=== PATIENT | female | born 1950 | race Caucasian/White ===

== ENCOUNTER 2023-10-28 20:50 | Inpatient (IN) | payer MEDICARE ==
[~2023-10-28] VITALS: Ht 170.2 cm; Wt 66.2 kg
[2023-10-28] MEDS ORDERED: LOSARTAN POTAS100 MG PO (21:05)
[2023-10-28] MEDS ORDERED: ATENOLOL100 MG PO (21:05)
[2023-10-28] MEDS ORDERED: INDAPAMIDE2.5 MG PO (21:06)
[2023-10-28] MEDS ORDERED: MIRTAZAPINE30 M1 PO (21:06)
[2023-10-28 21:21] LABS: BASOPHILS 0.2 % (0-2); EOSINOPHILS 0.5 % (0-6); HEMATOCRIT 42.1 % (35.0-50.0); HEMOGLOBIN 14.7 g/dL (12.0-18.0); LYMPHOCYTES 4.2 % (24-44); MCH 31.6 (27-36); MCV 90.2 fl (81-99); NEUTROPHILS 91.1 % (39-80); PLATELET COUNT 261 K/uL (140-440); RBC 4.66 M/ul (4.3-5.7); RDW 13.5 (10.5-15.0)
[2023-10-28 21:28] LABS: ALBUMIN 3.9 g/dL (3.4-5.0); ALBUMIN/GLOBULIN RATIO 1.05 (1.1-2.4); ANION GAP 12.9 (7-21); BILIRUBIN, TOTAL 1.6 ng/dL (0.2-1.0); BUN/CREATININE RATIO 9.41 (6.0-28.6); CALCIUM 9.4 mg/dL (8.5-10.1); CREATININE, SERUM 0.85 mg/dL (0.55-1.02); POTASSIUM 2.9 mmol/L (3.5-5.1); PROTEIN, TOTAL 7.6 g/dL (6.4-8.2)
[2023-10-28] MEDS ORDERED: KETOROLAC TROMETHAMINE 30 MG/ML VIAL IV ONE (21:45)
[2023-10-28] MEDS ORDERED: SODIUM CHLORIDE 0.9% 1,000 ML IV PRN (21:45)
[2023-10-28] MEDS ORDERED: ondansetron HCL 4 MG/2 ML VIAL IV ONE (21:45)
[2023-10-28] MEDS ORDERED: FAMOTIDINE 20 MG/ 2 ML VIAL IV ONE (21:45)
[2023-10-28] MEDS ORDERED: CEFEPIME HCL/D5W 1 GM/100 ML PIGGYBACK IV ONE (21:45)
[2023-10-28 22:31] LABS: LACTIC ACID, BLOOD 0.9 mmol/L (0.4-2.0)
[2023-10-28] MEDS ORDERED: POTASSIUM CHLORIDE 10 MEQ/100 ML BAG IV SCH (22:45)
[2023-10-28 23:29] LABS: BILIRUBIN, URINE NEGATIVE (negative); BLOOD/HGB, URINE NEGATIVE (Negative); KETONE, URINE SMALL (Negative); LEUK ESTERASE, URINE NEGATIVE (negative); NITRITE, URINE NEGATIVE (negative)
[2023-10-28] MEDS ORDERED: HYDROmorphone HCL 1 MG/ML SYR IV PRN (23:45)
[2023-10-28] MEDS ORDERED: ondansetron HCL 4 MG/2 ML VIAL IV PRN (23:45)
[2023-10-28] MEDS ORDERED: LACTATED RINGER'S 1,000 ML IV SCH (23:45)
[2023-10-28] MEDS ORDERED: KETOROLAC TROMETHAMINE 30 MG/ML VIAL IV PRN (23:45)
[2023-10-29] VITALS (13 sets, daily range): BP systolic 103–132; BP diastolic 48–73
[2023-10-29] MEDS ORDERED: ESTRACE42.5 GM VAGINAL (00:33)
[2023-10-29 05:38] LABS: BASOPHILS 0.1 % (0-2); EOSINOPHILS 0.1 % (0-6); HEMATOCRIT 36.2 % (35.0-50.0); HEMOGLOBIN 12.6 g/dL (12.0-18.0); MCHC 34.7 g/dl (30-36); MCV 89.2 fl (81-99); MONOCYTES 3.4 % (0-12); NEUTROPHILS 91.4 % (39-80); PLATELET COUNT 218 K/uL (140-440); RBC 4.06 M/ul (4.3-5.7); RDW 13.2 (10.5-15.0)
[2023-10-29 05:57] LABS: ALBUMIN 2.8 g/dL (3.4-5.0); ALBUMIN/GLOBULIN RATIO 0.93 (1.1-2.4); ANION GAP 10.9 (7-21); BILIRUBIN, TOTAL 1.3 ng/dL (0.2-1.0); BUN/CREATININE RATIO 10.84 (6.0-28.6); CALCIUM 8.4 mg/dL (8.5-10.1); CREATININE, SERUM 0.83 mg/dL (0.55-1.02); POTASSIUM 2.9 mmol/L (3.5-5.1); PROTEIN, TOTAL 5.8 g/dL (6.4-8.2)
[2023-10-29] MEDS ORDERED: D5%-NACL 0.9% 20 KCL 1,000 ML IV SCH (06:30)
[2023-10-29] MEDS ORDERED: HYDROmorphone HCL 4 MG TAB PO PRN (06:30)
[2023-10-29] MEDS ORDERED: HYDROmorphone HCL 1 MG/ML SYR IV PRN (06:30)
[2023-10-29] MEDS ORDERED: ACETAMINOPHEN 500 MG TAB PO PRN (06:30)
[2023-10-29] MEDS ORDERED: PROCHLORPERAZINE EDISYLATE 10 MG/2 ML VIAL IV PRN ×2 (06:30→12:45)
[2023-10-29] MEDS ORDERED: ondansetron HCL 4 MG/2 ML VIAL IV PRN ×2 (06:30→12:45)
[2023-10-29] MEDS ORDERED: POTASSIUM CHLORIDE 40 MEQ,LIDOCAINE HCL 1% 40 MG in DEXTROSE 5% 250 ML IV ONE (06:30)
[2023-10-29] MEDS ORDERED: SODIUM CHLORIDE 0.9% 1,000 ML IV SCH (07:15)
[2023-10-29 07:24] LABS: MAGNESIUM 1.6 mg/dL (1.8-2.4); PHOSPHORUS, INORGANIC 2.4 mg/dL (2.5-4.9)
[2023-10-29] MEDS ORDERED: METOPROLOL TARTRATE 5 MG/5 ML VIAL IV SCH (08:00)
[2023-10-29] MEDS ORDERED: PANTOPRAZOLE SODIUM 40 MG/10 ML VIAL IV SCH (09:00)
[2023-10-29] MEDS ORDERED: CEFEPIME HCL/D5W 2 GM/100 ML PIGGYBACK IV SCH (09:00)
[2023-10-29] MEDS ORDERED: FAMOTIDINE 20 MG/ 2 ML VIAL IV SCH (09:00)
[2023-10-29] MEDS ORDERED: LIDOCAINE HCL 1% 30 ML SDV ONE (09:49)
[2023-10-29] MEDS ORDERED: BUPIVACAINE HCL 0.25% 50 ML MDV ONE (09:49)
--- NOTE | 2023-10-29 09:49 | CONS ---
[facility] [address] [place], [place] [address] Signed DATE OF CONSULTATION: 10/29/2023 CHIEF COMPLAINT: Right lower quadrant abdominal pain. HISTORY OF PRESENT ILLNESS: Jessica is a 73-year-old female, who presents with about two days of right lower quadrant abdominal pain. It was persistent and getting worse. She finally came to the emergency room for evaluation. Her vital signs were fine, but she was tender in the right lower quadrant. White count was elevated. Urine showed some ketones. Her sodium and potassium are low. Chest x-ray was unremarkable. The CT scan of abdomen and pelvis showed the 12 mm inflamed appendix with some mild periappendiceal inflammation and an appendicolith. We can see that there is a mildly septated right superior renal cyst that needs probably followup with an MRI or CT scan in six months. We could also see her gallbladder has been removed. She was given Toradol and cefepime and Flagyl. I was asked to admit her as a general surgeon on-call. She did receive some IV fluids yesterday along with some potassium replacement. This morning, she is about the same. I can see the potassium and the sodium have improved a bit. PAST MEDICAL HISTORY: 1. Irritable bowel syndrome. 2. Anxiety. 3. Hypertension. 4. Insomnia. PAST SURGICAL HISTORY: Includes a laparoscopic cholecystectomy with Dr. Peres, lipoma removal from her back with Dr. Peres, hemorrhoid surgery in November [address] Lazaro and a partial hysterectomy for fibroids in the remote past. SOCIAL HISTORY: She does not smoke or drink. Patrick is her at [phone]. She prefers the [facility] pharmacy here in [place], [place]. Her primary care provider is Dr. Tara Cornejo, he is an MD in [place], [place]. FAMILY HISTORY: Mom had colon cancer. REVIEW OF SYSTEMS: She had 10 systems reviewed and she was on some of her surgical history. ALLERGIES: Penicillin, codeine, hydrocodone, and erythromycin base. She was able to Electronically Signed By: VERONICA VICK MD 10/29/23 0949 PATIENT NAME: JESSICA CHAVEZ CONSULTATION DATE OF : 54 REPORT #: [id number] PHYSICIAN: VERONICA VICK MD PCP: TARA CORNEJO MD REPORT IS CONFIDENTIAL AND NOT TO BE RELEASED WITHOUT AUTHORIZATION [facility] [address] [place] [id number] Signed take some tramadol with the help of some antiemetic medication. She has done well with Dilaudid as well. MEDICATIONS: 1. Diazepam. 2. Atenolol 75 mg. 3. Losartan 100 mg. 4. Mirtazapine. 5. Indapamide 2.5 mg. PHYSICAL EXAMINATION: VITAL SIGNS: Her blood pressure is 119/60, heart rate 87, respiratory rate 16, temperature is 99.3. She is 97% on room air. She is 5 feet 7 inches at 66 kg with a body mass index of 23. GENERAL: Jessica is a 73-year-old female lying supine semi-recumbent in her hospital bed. Her is at the bedside. She does not appear systemically ill or toxic. LUNGS: Clear to auscultation bilaterally. HEART: Regular rate and rhythm without murmurs. ABDOMEN: Soft and flat, but she is tender in the right lower quadrant at and slightly below McBurney's point. LABORATORY DATA: Her white blood cell count is 17.9, hemoglobin 12 neutrophils 91. Sodium 130, potassium 2.9, BUN 0.8. Total bilirubin is a little high at 1.3, AST 48, ALT 44, alkaline phosphatase 101, albumin is 2.8. Urinalysis shows some ketones. Lipase was normal at 43. Her blood cultures are pending. EKG showed normal sinus rhythm. RADIOGRAPHIC STUDIES: A chest x-ray is unremarkable. The CT scan of abdomen and pelvis is reviewed and you can see the 12 mm appendix with some mild periappendiceal inflammation along with the appendicolith somewhat closer to the cecum itself. We can see the clips in the gallbladder fossa. She also has the right superior renal mildly septated cyst with recommendations of a MRI or CT scan in six months. ASSESSMENT AND PLAN: Jessica is a 73-year-old female, who presents with acute appendicitis associated with hypokalemia and hyponatremia. I think this is associated with blood pressure pills namely her indapamide. She has already made some improvement in that regard. I had reviewed all this with Jessica and her in detail. I brought a brochure on the appendix and we looked that very carefully. We discussed the location and function of appendix. We discussed laparoscopic versus open appendectomy. She understands the expected intraop and postop course. There is risk including, but not limited to bleeding, infection, scarring, change in contour of the skin, damage to bowel, appendiceal stump leak, postoperative intra-abdominal abscess, incisional hernias and other unforeseen comorbidities. We are going to add her on to our surgery schedule Electronically Signed By: VERONICA VICK MD 10/29/23 0949 PATIENT NAME: CHAVEZ,JESSICA TYRA CONSULTATION DATE OF : 54 REPORT #: [id number] PHYSICIAN: VERONICA VICK MD PCP: TARA CORNEJO MD REPORT IS CONFIDENTIAL AND NOT TO BE RELEASED WITHOUT AUTHORIZATION [facility] [address] [place] [id number] Signed later this morning. In the meantime, we are going to give her a bolus of 1 L of normal saline and then we will replete the potassium as well and we will switch her IV fluids from the lactated Ringer's over to D5 normal saline with 20 mEq of potassium chloride per L. We will also add on the magnesium and phosphorus. She and her have expressed understanding and agreed with the above plan. Veronica Vick MD ALB/MODL /[id number] cc: MD Tara Zayas MD Copies: VERONICA VICK MD ~ Electronically Signed By: VERONICA VICK MD 10/29/23 0949 PATIENT NAME: CHAVEZ,JESSICA TYRA CONSULTATION DATE OF : 54 REPORT #: [id number] PHYSICIAN: VERONICA VICK MD PCP: TARA CORNEJO MD REPORT IS CONFIDENTIAL AND NOT TO BE RELEASED WITHOUT AUTHORIZATION
[2023-10-29] MEDS ORDERED: MAGNESIUM SULFATE 2 GM/50 ML BAG IV ONE (10:00)
[2023-10-29] MEDS ORDERED: POTASSIUM PHOSPHATE 30 MMOL in DEXTROSE 5% 500 ML IV ONE (10:00)
[2023-10-29] MEDS ORDERED: LIDOCAINE HCL 4% 5 ML AMP ONE (11:10)
[2023-10-29] MEDS ORDERED: ondansetron HCL 4 MG/2 ML VIAL ONE (11:10)
[2023-10-29] MEDS ORDERED: KETOROLAC TROMETHAMINE 30 MG/ML VIAL ONE (11:10)
[2023-10-29] MEDS ORDERED: SUCCINYLCHOLINE IN 0.9% NACL 200 MG/10 ML SYRINGE ONE (11:10)
[2023-10-29] MEDS ORDERED: SUGAMMADEX SODIUM 200 MG/2 ML ML ONE (11:10)
[2023-10-29] MEDS ORDERED: fentaNYL citrate 100 MCG/2 ML VIAL ONE (11:10)
[2023-10-29] MEDS ORDERED: METOCLOPRAMIDE HCL 10 MG/2 ML SDV ONE (11:10)
[2023-10-29] MEDS ORDERED: LACTATED RINGER'S 1,000 ML IV ONE (11:10)
[2023-10-29] MEDS ORDERED: propofoL 200 MG/20 ML VIAL ONE (11:10)
[2023-10-29] MEDS ORDERED: FAMOTIDINE 20 MG/ 2 ML VIAL ONE (11:10)
[2023-10-29] MEDS ORDERED: ROCURONIUM BROMIDE 50 MG/5 ML SYR ONE (11:10)
[2023-10-29] MEDS ORDERED: DEXAMETHASONE SOD PHOS 4 MG/ML VIAL ONE (11:10)
[2023-10-29] MEDS ORDERED: MIDAZOLAM HCL 2 MG/2 ML VIAL ONE (11:11)
[2023-10-29] MEDS ORDERED: IBLOOD GLUCOSE TEST STRIP 1 EA TEST VI PRN (12:45)
[2023-10-29] MEDS ORDERED: MEPERIDINE HCL 25 MG/1 ML VIAL IV PRN (12:45)
[2023-10-29] MEDS ORDERED: METOCLOPRAMIDE HCL 10 MG/2 ML SDV IV PRN (12:45)
[2023-10-29] MEDS ORDERED: fentaNYL citrate 50 MCG/ML SDV IV PRN (12:45)
[2023-10-29] MEDS ORDERED: droPERidol 5 MG/2 ML VIAL IV PRN (12:45)
[2023-10-29] MEDS ORDERED: NALOXONE HCL 0.4 MG SYR IV PRN (12:45)
[2023-10-29] MEDS ORDERED: CEFEPIME HCL/D5W 1 GM/100 ML PIGGYBACK IV SCH (14:00)
[2023-10-29] MEDS ORDERED: MAGNESIUM SULFATE 50 ML IV ONE (15:38)
--- NOTE | 2023-10-29 21:36 | EKG ---
[facility] [address] [facility] [place], [place] [address] Signed Normal sinus rhythm Low voltage QRS Nonspecific T wave abnormality Abnormal ECG No previous ECGs available Confirmed by Keely Gregory MD () on 10/29/2023 9:36:22 PM Electronically Signed By: KEELY GREGORY MD 10/29/23 2136 PATIENT NAME: JESSICA CHAVEZ Electrocardiogram DATE OF : 54 PHYSICIAN: KEELY GREGORY MD REPORT #: [id number] REPORT IS CONFIDENTIAL AND NOT TO BE RELEASED WITHOUT AUTHORIZATION
[2023-10-30] VITALS (9 sets, daily range): BP systolic 97–139; BP diastolic 48–67
[2023-10-30 05:38] LABS: BASOPHILS 0.1 % (0-2); EOSINOPHILS 0.2 % (0-6); HEMATOCRIT 34.7 % (35.0-50.0); HEMOGLOBIN 11.9 g/dL (12.0-18.0); LYMPHOCYTES 3.7 % (24-44); MCH 31.2 (27-36); MCHC 34.4 g/dl (30-36); MCV 90.8 fl (81-99); PLATELET COUNT 205 K/uL (140-440); RBC 3.82 M/ul (4.3-5.7); RDW 13.3 (10.5-15.0)
[2023-10-30 06:01] LABS: ALBUMIN 2.3 g/dL (3.4-5.0); ALBUMIN/GLOBULIN RATIO 0.72 (1.1-2.4); ANION GAP 11.8 (7-21); BILIRUBIN, TOTAL 0.4 ng/dL (0.2-1.0); BUN/CREATININE RATIO 6.49 (6.0-28.6); CALCIUM 7.9 mg/dL (8.5-10.1); CREATININE, SERUM 0.77 mg/dL (0.55-1.02); PHOSPHORUS, INORGANIC 1.9 mg/dL (2.5-4.9); POTASSIUM 3.8 mmol/L (3.5-5.1); PROTEIN, TOTAL 5.5 g/dL (6.4-8.2)
--- NOTE | 2023-10-30 06:41 | OR ---
[facility] [address] [place], [place] [address] Signed DATE OF OPERATION: 10/29/2023 SURGEON: Veronica Vick MD PREOPERATIVE DIAGNOSES: 1. Acute appendicitis. 2. Fecalith. POSTOPERATIVE DIAGNOSES: 1. Acute ruptured appendicitis. 2. Fecalith. PROCEDURES: 1. Laparoscopic appendectomy (prolonged and difficult at 1.5 hours). 2. Placement of right pelvic and gutter Junito drain. ESTIMATED BLOOD LOSS: 10 mL. URINE OUTPUT: 200 mL over 1.5 hours. FINDINGS: Jessica indeed had a fecalith and it was ruptured next to the fecalith. Fortunately, the omentum and the small bowel was covering all of this, we kept it relatively contained. It took very slow careful blunt dissection to separate the omentum and the appendix. In the end, the omentum was quite adherent to the fallopian tube and the fimbriae. It was creating a potential area for internal hernia. Therefore, we came across the omentum twice with the vascular load to separate the omentum from the fallopian tube. There was quite a bit of inflammation underneath this area and some of that had washed down into the pelvis. We therefore placed a Junito drain into the bottom of the pelvis up pass the cecum up the right gutter and out near the right subcostal margin. INDICATIONS: Jessica is a 73-year-old female, who for at least 2-1/2 days has had right lower quadrant abdominal pain. She finally came to the emergency room for evaluation. Her vital signs were stable. She had low-grade temperature. She had localized peritonitis in the right lower quadrant. White blood cell count was elevated and her urine ketones were up a little bit. We could see that the sodium, potassium, magnesium and phosphorus were all low. The ER doctor did give her some IV fluids overnight along with some potassium Electronically Signed By: VERONICA VICK MD 10/30/23 0641 PATIENT NAME: JESSICA CHAVEZ OPERATIVE REPORT DATE OF : 54 REPORT #: [id number] PHYSICIAN: VERONICA VICK MD PCP: TARA CORNEJO MD REPORT IS CONFIDENTIAL AND NOT TO BE RELEASED WITHOUT AUTHORIZATION [facility] [address] [place], [place] [address] Signed replacement. We gave her some additional saline this morning along with additional potassium, magnesium and phosphorus replacement. She received cefepime and Flagyl last night and this morning. A chest x-ray was done and this was unremarkable. A CT scan of abdomen and pelvis was performed and she had a 12 mm thickened appendix with some mild periappendiceal inflammation and appendicolith close to the base of the appendix. She also has slightly septated right superior renal cyst that probably needs an MRI or CT scan in about six months. I had been asked to admit her overnight as general surgeon on-call. I met with Jessica and her this morning. I brought a brochure with respect to the appendix. We went through it page by page. I explained to Jessica the location and function of appendix. We discussed laparoscopic and possible open appendectomy. We reviewed the risks including, but not limited to bleeding, infection, scarring, change in contour of the skin, damage to bowel, appendiceal stump leak, postoperative intra-abdominal abscess, incisional hernias and other unforeseen comorbidities. She and her expressed understanding and wished to proceed. PROCEDURE IN DETAIL: I met with Jessica again in our preop area. Her had to run home to take care of some things and come back. She was taken in the operating room and placed in the supine position under general endotracheal tube anesthesia. She was already on preoperative antibiotics along with subcutaneous Lovenox. SCDs were in place. A Simon catheter was inserted with return of clear yellow urine without difficulty. Once she was pharmacologically paralyzed, we could feel the inflamed mass in the right lower quadrant. We placed our trocars in their usual positions under direct visualization of the camera without difficulty. We used careful blunt dissection and we the omentum and the small bowel initially from the anterior abdominal wall in the right lower quadrant. We then the omentum from the small bowel. It took a few minutes then to get the omentum from the appendix itself. We could easily follow the tip of the appendix all the way back to the base of the appendix. Right at the location of the appendicolith, it had ruptured. All this inflammation and some pus was contained. We irrigated that area and suctioned that out until clear. We cleaned off the base of the appendix near the cecum with the help of the cautery. We used our GI load on linear stapler and we divided the appendix from the cecum with good hemostasis. We used a vascular load. We came across the mesoappendix and again we had good hemostasis. We placed our appendix into an EndoCatch bag and took it out through the right subcostal trocar site. After this, we put the trocar back through the right subcostal trocar site. We irrigated out the area of the cecum and down into the right gutter. We found that the omentum was adherent to the fallopian tube and the fimbriae. It was creating an area of potential internal hernia. We could not separate it bluntly, so we used a vascular load on the linear stapler and we came across the omentum twice and we simply that tissue and allowed it to fall back into place. We then brought our #7 flat Junito drain through the lateral right subcostal margin and we brought it down the right gutter past the area of the cecum and then deep down deep into Electronically Signed By: VERONICA VICK MD 10/30/23 0641 PATIENT NAME: JESSICA CHAVEZ OPERATIVE REPORT DATE OF : 54 REPORT #: [id number] PHYSICIAN: VERONICA VICK MD PCP: TARA CORNEJO MD REPORT IS CONFIDENTIAL AND NOT TO BE RELEASED WITHOUT AUTHORIZATION [facility] [address] [place], [place] [address] Signed the right pelvis. It was placed to bulb suction and held in place with interrupted 2-0 nylon suture at the level of the skin. We then used our laparoscopic suturing device to pass 0-Vicryl suture x2 on either side of the fascia of the right subcostal trocar site. This was tied down to close this fascia primarily. After this, all the gas was allowed to escape and the remaining two trocars were removed. We closed the fascia of the supraumbilical trocar site with interrupted [id number] and simple 0-Vicryl sutures. Local anesthetic was copiously injected into all three trocar sites. Each trocar site was irrigated and suctioned out until clear. We closed the skin and dermis of each trocar site with interrupted 3-0 subcuticular and Monocryl sutures. Dry gauze and tape was applied to all three incisions as well as the drain site. We left her Simon catheter in place. After this, Jessica was awakened from her anesthesia, extubated in the OR, and taken to recovery room in stable condition. MD ROBERTA Zayas/BARRY /[id number] cc: MD Tara Zayas MD Copies: VERONICA VICK MD ~ Electronically Signed By: VERONICA VICK MD 10/30/23 0641 PATIENT NAME: JESSICA CHAVEZ OPERATIVE REPORT DATE OF : 54 REPORT #: [id number] PHYSICIAN: VERONICA VICK MD PCP: TARA CORNEJO MD REPORT IS CONFIDENTIAL AND NOT TO BE RELEASED WITHOUT AUTHORIZATION
[2023-10-30] MEDS ORDERED: SODIUM PHOSPHATE 30 MMOL in DEXTROSE 5% 250 ML IV ONE (06:45)
[2023-10-30] MEDS ORDERED: ALBUTEROL SULFATE 0.083% 3 ML VIAL INH PRN (08:00)
[2023-10-30] MEDS ORDERED: MIRTAZAPINE 30 MG TAB PO SCH ×2 (11:15)
[2023-10-31] VITALS (10 sets, daily range): BP systolic 92–149; BP diastolic 51–86
[2023-10-31 05:39] LABS: BASOPHILS 0.2 % (0-2); EOSINOPHILS 0.9 % (0-6); HEMOGLOBIN 11.9 g/dL (12.0-18.0); LYMPHOCYTES 10.7 % (24-44); MCH 31.4 (27-36); MCV 92.3 fl (81-99); MONOCYTES 5.3 % (0-12); NEUTROPHILS 82.9 % (39-80); PLATELET COUNT 235 K/uL (140-440); RBC 3.79 M/ul (4.3-5.7); RDW 13.4 (10.5-15.0)
[2023-10-31 05:57] LABS: ALBUMIN 2.3 g/dL (3.4-5.0); ALBUMIN/GLOBULIN RATIO 0.72 (1.1-2.4); ANION GAP 9.3 (7-21); BILIRUBIN, TOTAL 0.5 ng/dL (0.2-1.0); BUN/CREATININE RATIO 5.55 (6.0-28.6); CALCIUM 8.1 mg/dL (8.5-10.1); CREATININE, SERUM 0.72 mg/dL (0.55-1.02); MAGNESIUM 1.6 mg/dL (1.8-2.4); PHOSPHORUS, INORGANIC 2.1 mg/dL (2.5-4.9); POTASSIUM 3.3 mmol/L (3.5-5.1); PROTEIN, TOTAL 5.5 g/dL (6.4-8.2)
[2023-10-31] MEDS ORDERED: MAGNESIUM SULFATE 2 GM/50 ML BAG IV ONE (09:00)
[2023-10-31] MEDS ORDERED: POTASSIUM PHOSPHATE 30 MMOL in DEXTROSE 5% 500 ML IV ONE (09:00)
--- NOTE | 2023-10-31 17:08 | PATH ---
[facility] [address] [facility] [place], [place] [address] Signed SPECIMEN(S): A APPENDIX SPECIMEN SOURCE: A. APPENDIX CLINICAL HISTORY: Acute appendicitis. FINAL PATHOLOGIC DIAGNOSIS: Appendix, appendectomy: - Acute suppurative appendicitis with periappendicitis and serositis. - Patchy mucosal necrosis. JVR:nellie MICROSCOPIC EXAMINATION: Histologic sections of all submitted blocks are examined by light microscopy. These findings, together with the gross examination, support the pathologic diagnosis. GROSS DESCRIPTION: The specimen, labeled and designated "moira Nuno," is received in formalin and consists of: Specimen: Appendix with mesoappendix. Dimensions: 5 cm in length by 0.7-0.9 cm in diameter with attached mesoappendix measuring up to 2.2 cm. Serosa: Entirely covered by fibrous adhesions, fibrinopurulent exudate, and hemorrhage.. Defect: Not grossly identified. Inking: Staple line is inked blue. Mucosa: Red-de la fuente, depressed, but unremarkable for any discrete masses. Fecalith: Present throughout the specimen. Additional: None. Operational Risk Manager sections are submitted in (A1). AM (under the direct supervision of a pathologist) The Gross Description was prepared using a voice recognition system. The report was reviewed for accuracy; however, sound-alike word errors, addition and/or deletions may occur. If there is any question about this report, please contact Client Services. PERFORMING LABORATORY: Technical component was performed by [employer], Brandon Leyva, PATIENT NAME: JESSICA NUNO PATHOLOGY DATE OF : 54 REPORT #: [id number] PHYSICIAN: ALHAJI PATHOLOGY PCP: JULIANNE CORNEJO MD REPORT IS CONFIDENTIAL AND NOT TO BE RELEASED WITHOUT AUTHORIZATION [facility] [address] [facility] [place], [place] [address] [place] [address] (CLIA# [id number]). Professional interpretation was performed by [facility], [address] [place] [address] [place] [address] (CLIA#: [id number]). Diagnostician: Mello Wheatley MD Pathologist Electronically Signed 10/31/2023 Copies: ~ PATIENT NAME: JESSICA NUNO PATHOLOGY DATE OF : 54 REPORT #: [id number] PHYSICIAN: ALHAJI PETERSON PCP: JULIANNE CORNEJO MD REPORT IS CONFIDENTIAL AND NOT TO BE RELEASED WITHOUT AUTHORIZATION
[2023-11-01] VITALS (12 sets, daily range): BP systolic 113–151; BP diastolic 61–93
[2023-11-01 05:30] LABS: BASOPHILS 0.6 % (0-2); EOSINOPHILS 2.1 % (0-6); LYMPHOCYTES 14.8 % (24-44); MCH 31.7 (27-36); MCHC 34.4 g/dl (30-36); MCV 92.2 fl (81-99); MONOCYTES 6.4 % (0-12); NEUTROPHILS 76.1 % (39-80); PLATELET COUNT 275 K/uL (140-440); RDW 13.3 (10.5-15.0)
[2023-11-01 05:44] LABS: BUN/CREATININE RATIO 6.75 (6.0-28.6); CALCIUM 8.5 mg/dL (8.5-10.1); CREATININE, SERUM 0.74 mg/dL (0.55-1.02); MAGNESIUM 1.9 mg/dL (1.8-2.4); PHOSPHORUS, INORGANIC 2.9 mg/dL (2.5-4.9)
[2023-11-01] MEDS ORDERED: IBUPROFEN 800 MG TAB PO PRN (07:45)
[2023-11-01] MEDS ORDERED: POLYETHYLENE GLYCOL 3350 1 PACKET PO SCH (09:00)
[2023-11-01] MEDS ORDERED: PANTOPRAZOLE SODIUM 40 MG TABEC PO SCH (09:00)
[2023-11-01] MEDS ORDERED: LOSARTAN POTASSIUM 100 MG TAB PO SCH (09:00)
[2023-11-01] MEDS ORDERED: atenoloL 50 MG TAB PO SCH (09:00)
[2023-11-01] MEDS ORDERED: hydroCHLOROthiazide 25 MG TAB PO SCH (09:00)
[2023-11-01] MEDS ORDERED: DOCUSATE SODIUM 100 MG CAP PO SCH (09:00)
[2023-11-01] MEDS ORDERED: atenoloL 100 MG TAB PO SCH (09:00)
[2023-11-02 05:43] VITALS: BP 147/75
[2023-11-02 05:47] VITALS: BP 147/75
[2023-11-02] MEDS ORDERED: metroNIDAZOLE 250 MG TAB PO SCH (08:28)
[2023-11-02] MEDS ORDERED: levoFLOXacin 500 MG TAB PO SCH (09:00)
[2023-11-02] MEDS ORDERED: CETIRIZINE HCL 10 MG TAB PO SCH (09:00)
[2023-11-02 09:45] VITALS: BP 131/64
[2023-11-02 09:48] VITALS: BP 131/64
[2023-11-02] MEDS ORDERED: LEVOFLOXACIN500 MG PO (13:13)
[2023-11-02] MEDS ORDERED: METRONIDAZOLE250 MG PO (13:13)
--- NOTE | 2023-11-03 09:24 | DS ---
[facility] [address] [place], [place] [address] Signed ADMISSION DATE: 10/29/2023 DISCHARGE DATE: 11/02/2023 FINAL DIAGNOSES: 1. Acute ruptured appendicitis. 2. Superior right renal minimally septated cyst. 3. Hypokalemia, hypophosphatemia, hypomagnesemia and hyponatremia. PROCEDURES: 1. Laparoscopic appendectomy. 2. CT scan of the abdomen and pelvis. HISTORY OF PRESENT ILLNESS: Jessica is a 73-year-old female, who for at least 2-1/2 days was having right lower quadrant abdominal pain. She came to the emergency room for evaluation. Her white count was elevated along with her liver function tests. She said the liver function tests seem to be chronic. Although they resolved during her hospital stay on IV fluids. She was tender in the right lower quadrant. A CT scan confirmed the 12 mm appendix and some inflammation and appendicolith. She also has a small septated cyst on the superior pole of the right kidney that needs an MRI or a CT scan in about six months. I have been asked to admit her as a general surgeon on-call. HOSPITAL COURSE: Jessica was admitted as above and started on IV fluids along with cefepime and Flagyl. I took her to surgery later that day for a somewhat prolonged and difficult laparoscopic appendectomy at 1 hour and 30 minutes. Fortunately, the omentum in the small bowel had contained the rupture and the pus. We had left a drain in this area. It is now thin serous fluid. She has slowly progressed each day. She is off her Dilaudid. She has been using Tylenol with good results. She wanted some Zyrtec this morning because of her nasal congestion. We have her back on her usual medications. She is tolerating regular diet and having lots of flatus. Her abdomen is perfectly soft and flat with almost no tenderness now in the right lower quadrant. All the incisions are healing well without any local signs or symptoms of infection. The drain site is satisfactory. The fluid is now thin serous fluid. Her blood cultures have come back no growth to date. We kept her on the cefepime and Flagyl throughout the hospital stay. DISCHARGE PLANS AND MEDICATIONS: Jessica will be discharged to home on Levaquin 500 mg one tablet p.o. daily for six days. We will give her Flagyl 250 mg one p.o. t.i.d. for six days. She can use Tylenol, ibuprofen or Aleve as needed for pain. That can be purchased [id number]. She is going to continue all her chronic medications at home including the indapamide. Here in Electronically Signed By: VERONICA VICK MD 11/03/23 0924 PATIENT NAME: JESSICA CHAVEZ DISCHARGE SUMMARY DATE OF : 54 REPORT #: [id number] PHYSICIAN: VERONICA VICK MD PCP: TARA CORNEJO MD REPORT IS CONFIDENTIAL AND NOT TO BE RELEASED WITHOUT AUTHORIZATION [address] [address] Signed the hospital, we gave her hydrochlorothiazide, which is on our formulary. She responded nicely to that with good diuresis. We had to replace her electrolytes every day until we got them back to normal for her entire hospital stay. Her liver function tests went back to normal with IV fluids. She is going to need followup on the small septated superior pole of the right kidney with an MRI or CT scan in about six months. She is going to perform her activities of daily living including walking up and down stairs and showering, bathing as usual. She should not do any heavy pushing, pulling, or lifting over about 20 pounds for a couple of months. We are going to leave the drain in place and the nurses will teach her how to take care of the drain. I will remove that in the office in about a week to 10 days. I have reviewed this with Jessica in detail now for a couple of days. She has expressed understanding and agrees with the above plan. Veronica Vick MD ALB/MODL /[id number] cc: MD Tara Zayas MD Copies: VERONICA VIKC MD ~ Electronically Signed By: VERONICA VICK MD 11/03/23 0924 PATIENT NAME: JESSICA CHAVEZ DISCHARGE SUMMARY DATE OF : 54 REPORT #: [id number] PHYSICIAN: VERONICA VICK MD PCP: TARA CORNEJO MD REPORT IS CONFIDENTIAL AND NOT TO BE RELEASED WITHOUT AUTHORIZATION
== END 2023-11-02 13:36 | disposition home or self-care (01) | DRG 398 ==
LOC: ED 20:50 → MS 20:52 → ED 20:52 → MS 10-30 10:35
PROVIDERS: Internal Medicine; ADMIT Colon & Rectal Surgery; ATTEND Colon & Rectal Surgery
PROC: 0W9J3ZZ Drainage of Pelvic Cavity, Percutaneous Approach (ICD-10-PCS; 2023-10-29)
PROC: 0DTJ4ZZ Resection of Appendix, Percutaneous Endoscopic Approach (ICD-10-PCS; principal; 2023-10-29 11:00)
DX: K35.32 Acute appendicitis with perforation, localized peritonitis, and gangrene, without abscess (principal); E87.1 Hypo-osmolality and hyponatremia; N28.1 Cyst of kidney, acquired; K58.9 Irritable bowel syndrome, unspecified; F41.9 Anxiety disorder, unspecified; I10 Essential (primary) hypertension; E87.6 Hypokalemia; G47.00 Insomnia, unspecified; E83.39 Other disorders of phosphorus metabolism; E83.42 Hypomagnesemia; Z98.890 Other specified postprocedural states; Z90.710 Acquired absence of both cervix and uterus; Z88.0 Allergy status to penicillin; Z88.5 Allergy status to narcotic agent; Z88.1 Allergy status to other antibiotic agents; Z79.899 Other long term (current) drug therapy; Z91.018 Allergy to other foods
CPT/HCPCS: 00840; 36415; 71045; 74177; 80048; 80053; 81003; 83605; 83690; 83735; 84100; 85025; 85060; 87040; 88304; 93005; 93010; 94667; 94762; 96361; 96366; 96367; 96375; 96376; 99285-25; A9270; G0378; J0330; J0692; J0780; J1100; J1170; J1885; J2250; J2405; J2470; J2704; J2765; J3010; J3475; J3480; J3490; J7030; J7060; J7121; Q9967